=== PATIENT | female | born 1975 | race Caucasian/White ===

== ENCOUNTER → 2016-11-04 | Outpatient (CLI) | payer BC ==
[2016-11-04 12:22] LABS: ABSOLUTE BASOPHILS # (AUTO) 0.1 10^3/uL (0.0-0.2); ABSOLUTE EOSINOPHILS # (AUTO) 0.1 10^3/uL (0.0-0.6); ABSOLUTE LYMPHOCYTES (AUTO) 2.4 10^3/uL (0.5-4.7); ABSOLUTE MONOCYTES (AUTO) 0.5 10^3/uL (0.1-1.4); BASOPHILS % (AUTO) 0.6 % (0-2); HEMATOCRIT 42.2 % (36.0-47.0); HEMOGLOBIN 14.6 g/dL (12.0-15.5); HGB HCT DIFFERENCE 1.6; LYMPHOCYTES % (AUTO) 26.4 % (13-45); MEAN CORPUSCULAR HEMOGLOBIN 30.3 pg (27.0-33.4); MEAN CORPUSCULAR HGB CONC 34.5 g/dL (32.0-36.0); MEAN CORPUSCULAR VOLUME 88 fl (80-97); MONOCYTES % (AUTO) 5.3 % (3-13); RED BLOOD COUNT 4.81 10^6/uL (3.72-5.28); RED CELL DISTRIBUTION WIDTH 12.7 % (11.5-14.0); SEGMENTED NEUTROPHILS % (AUTO) 66.7 % (42-78)
[2016-11-04 12:44] LABS: ALANINE AMINOTRANSFERASE 51 U/L (9-52); ALBUMIN 4.4 g/dL (3.5-5.0); ALKALINE PHOSPHATASE 69 U/L (38-126); ANION GAP 9 (5-19); ASPARTATE AMINO TRANSFERASE 33 U/L (14-36); BILIRUBIN,TOTAL 0.6 mg/dL (0.2-1.3); BLOOD UREA NITROGEN 14 mg/dL (7-20); CARBON DIOXIDE 27 mmol/L (22-30); CHLORIDE 106 mmol/L (98-107); CHOLESTEROL 173.87 mg/dL (0-200); CREATININE RESULT 0.76 mg/dL (0.52-1.25); Direct HDL 41 mg/dL (>40); GLUCOSE 83 mg/dL (75-110); POTASSIUM 4.8 mmol/L (3.6-5.0); SODIUM 142.2 mmol/L (137-145); TRIGLYCERIDES 140 mg/dL (<150)
[2016-11-04 12:55] LABS: DIRECT LDL 93 mg/dL (<100)
[2016-11-04 12:56] LABS: FREE T3 2.91 pg/mL (2.77-5.27)
[2016-11-04 13:15] LABS: THYROID STIMULATING HORMONE < 0.02 uIU/mL (0.47-4.68)
[2016-11-05 06:39] LABS: DEHYDROEPIANDROSTERONE SULFATE 50.8 ug/dL (57.3-279.2)
[2016-11-05 14:15] LABS: LUTEINIZING HORMONE 5.6 mIU/mL (.)
[2016-11-05 14:16] LABS: INSULIN 8.3 uIU/mL (2.6-24.9); PROGESTERONE 8.7 ng/mL (.)
[2016-11-06 07:02] LABS: TESTOSTERONE FREE (DIRECT) 0.9 pg/mL (0.0-4.2)
== END ==
LOC: OCH 11:49
PROVIDERS: ATTEND Clinical Neuropsychologist
DX: R63.5 Abnormal weight gain (principal); N95.1 Menopausal and female climacteric states; R53.83 Other fatigue
CPT/HCPCS: 36415; 80053; 80061; 82627; 82672; 83001; 83002; 83036; 83525; 84144; 84402; 84403; 84439; 84443; 84481; 85025

== ENCOUNTER → 2017-03-09 | Outpatient (CLI) | payer BC ==
--- NOTE | 2017-03-09 13:11 | RADIOLOGY REPORT (SQ) ---
EXAM DESCRIPTION: U/S RETROPERITON (RENAL/AORTA) COMPLETED DATE/TIME: 03/09/2017 11:32 am REASON FOR STUDY: UNSPECIFIED ABDOMINAL PAIN R10.9 UNSPECIFIED ABDOMINAL PAIN COMPARISON: January 2016 TECHNIQUE: Dynamic and static grayscale images acquired of the kidneys and bladder and recorded on P ACS. Additional selected color Doppler and spectral images recorded. LIMITATIONS: None. FINDINGS: RIGHT KIDNEY: 9.9 cm in length. Normal echogenicity. No solid or suspicious masses. No hydronephrosis. No calcifications. LEFT KIDNEY: 11.0 cm in length. Normal echogenicity. No solid or suspicious masses. No hydrone phrosis. No calcifications. BLADDER: Bladder is not well visualized due to its non distended state. Patient had voided prior to the exam. OTHER FINDINGS: No other significant finding. IMPRESSION: No significant renal abnormalities were identified. Other findings as noted above TECHNICAL DOCUMENTATION: JOB ID: [id number] [employer] All Rights Reserved
== END ==
LOC: RAD 10:35
PROVIDERS: ATTEND Urology
DX: R10.9 Unspecified abdominal pain (principal)
CPT/HCPCS: 76770